=== PATIENT | male | born 1940 | race Caucasian/White ===

== ENCOUNTER 2017-07-28 08:43 | Day surgery (SDC) | payer MEDICARE, OTHER ==
[~2017-07-28] VITALS: Ht 177.8 cm; Wt 90.5 kg
[2017-07-28] MEDS ORDERED: METF500T4 PO (09:20)
[2017-07-28] MEDS ORDERED: CHOL200074 PO (09:20)
[2017-07-28] MEDS ORDERED: testosterone IM (09:20)
[2017-07-28] MEDS ORDERED: SIMV40TA3 PO (09:26)
[2017-07-28] MEDS ORDERED: LOSA1TAB17 PO (09:26)
[2017-07-28] MEDS ORDERED: SILD100T PO (09:26)
[2017-07-28] MEDS ORDERED: FLUT1DIS3 INH (09:26)
[2017-07-28] MEDS ORDERED: DIPH25CA61 PO (09:26)
[2017-07-28] MEDS ORDERED: ASPI-621 PO (09:26)
[2017-07-28] MEDS ORDERED: [UNRECOGNIZED DRUG - CODE] PO (09:26)
[2017-07-28 09:34] VITALS: BP 152/78
[2017-07-28] MEDS ORDERED: SODIUM CHLORIDE 0.9% 1,000 ML IV SCH (11:07)
[2017-07-28] MEDS ORDERED: FENTANYL PF 100 MCG/2ML ONE (11:17)
[2017-07-28] MEDS ORDERED: VERAPAMIL 2.5 MG/ML, 2ML ONE (11:17)
[2017-07-28] MEDS ORDERED: TICAGRELOR 90 MG TABLET ONE (11:17)
[2017-07-28] MEDS ORDERED: LIDOCAINE 2%, 20ML ONE (11:17)
[2017-07-28] MEDS ORDERED: BIVALIRUDIN 250 MG ONE (11:17)
[2017-07-28] MEDS ORDERED: HEPARIN 1,000 UNITS/ML, 10ML ONE (11:17)
[2017-07-28] MEDS ORDERED: MIDAZOLAM 1 MG/ML, 5ML ONE (11:17)
== END 2017-07-28 14:46 ==
LOC: CACL 08:43
PROVIDERS: ATTEND Internal Medicine Cardiovascular Disease
DX: I25.10 Atherosclerotic heart disease of native coronary artery without angina pectoris (principal); I35.0 Nonrheumatic aortic (valve) stenosis; I71.4 Abdominal aortic aneurysm, without rupture; I10 Essential (primary) hypertension; J44.9 Chronic obstructive pulmonary disease, unspecified; E11.9 Type 2 diabetes mellitus without complications
CPT/HCPCS: 93458; 99156; C1769; C1894; J1644; J2250; J3010; J3490; Q9967; J0583

== ENCOUNTER 2017-11-10 06:26 | Day surgery (SDC) | payer MEDICARE, OTHER ==
[~2017-11-10] VITALS: Ht 177.8 cm; Wt 89.5 kg
[~2017-11-10 06:26] MED LIST: ASPI-621 PO; CHOL200074 PO; DIPH25CA61 PO; FLUT1DIS3 INH; LOSA1TAB22 PO; METF500T4 PO; SILD100T PO; SIMV40TA3 PO; [UNRECOGNIZED DRUG - CODE] PO; testosterone IM
[2017-11-10] MEDS ORDERED: SODIUM CHLORIDE 0.9% 1,000 ML IV SCH (06:32)
[2017-11-10 06:39] VITALS: BP 122/84
[2017-11-10] MEDS ORDERED: WARF5TAB PO (06:58)
[2017-11-10] MEDS ORDERED: WARF2.5T PO (06:58)
[2017-11-10] MEDS ORDERED: LOSA25TA5 PO (06:58)
[2017-11-10] MEDS ORDERED: AMIO200T42 PO (07:01)
[2017-11-10] MEDS ORDERED: FURO20TA3 PO (07:01)
[2017-11-10] MEDS ORDERED: METO-93 PO (07:03)
[2017-11-10 07:17] LABS: INTERNATIONAL NORMALIZED RATIO 1.96 (0.93-1.1); PROTHROMBIN TIME 20.1 Seconds (9.6-11.5)
[2017-11-10 07:21] LABS: ALANINE AMINOTRANSFERASE 37 U/L (12-78); ALBUMIN 3.5 g/dL (3.4-5.0); ANION GAP 9 mmol/L (5-15); CALCIUM 8.8 mg/dL (8.5-10.1); CHLORIDE 104 mmol/L (98-107); CREATININE 1.96 mg/dL (0.7-1.3)
[2017-11-10 07:22] LABS: BASOPHILS # (AUTO) 0.08 x10^3/uL (0-0.1); BASOPHILS % (AUTO) 1 % (0-1); EOSINOPHILS % (AUTO) 5 % (1-7); LYMPHOCYTES # (AUTO) 1.18 x10^3/uL (1-3.4); LYMPHOCYTES % (AUTO) 15 % (22-44); MD NO; MEAN CORPUSCULAR HEMOGLOBIN 29.8 pg (27.5-34.5); MEAN CORPUSCULAR HGB CONC 32.9 g/dL (33.2-36.2); MEAN CORPUSCULAR VOLUME 90.5 fL (81-97); MEAN PLATELET VOLUME 8.1 fL (7.4-10.4); MONOCYTES # (AUTO) 0.58 x10^3/uL (0.2-0.8); MONOCYTES % (AUTO) 8 % (2-9); NEUTROPHILS # (AUTO) 5.48 x10^3/uL (1.8-6.8); NEUTROPHILS % (AUTO) 71 % (42-75); PLATELET COUNT 207 x10^3/uL (130-400); RED BLOOD COUNT 4.09 x10^6/uL (4.38-5.82); RED CELL DISTRIBUTION WIDTH 15.6 % (9.4-14.8)
[2017-11-10 07:23] LABS: ALKALINE PHOSPHATASE 80 U/L (45-117); BILIRUBIN,TOTAL 0.3 mg/dL (0.2-1.0)
[2017-11-10] MEDS ORDERED: PROTAMINE SULFATE 10 MG/ML, 5ML ONE (07:44)
[2017-11-10] MEDS ORDERED: HEPARIN 1,000 UNITS/ML, 10ML ONE (07:44)
[2017-11-10] MEDS ORDERED: ISOPROTERENOL 0.2MG/ML, 5ML ONE (07:44)
[2017-11-10] MEDS ORDERED: ADENOSINE 6 MG/2 ML ONE (07:44)
[2017-11-10] MEDS ORDERED: FENTANYL PF 250 MCG/5ML ONE (07:51)
[2017-11-10] MEDS ORDERED: MIDAZOLAM 1 MG/ML, 2ML ONE (07:51)
[2017-11-10] MEDS ORDERED: ROCURONIUM 10 MG/ML,10ML ONE (07:56)
[2017-11-10] MEDS ORDERED: ONDANSETRON 2MG/ML, 2ML ONE (07:56)
[2017-11-10] MEDS ORDERED: DEXAMETHASONE 4 MG/ML, 1ML ONE (07:56)
[2017-11-10] MEDS ORDERED: PROPOFOL 10 MG/ML, 20ML ONE (07:56)
[2017-11-10] MEDS ORDERED: PHENYLEPHRINE 10 MG/ML ONE (07:56)
[2017-11-10] MEDS ORDERED: SUCCINYLCHOLINE 20 MG/ML, 10ML ONE (07:56)
[2017-11-10] MEDS ORDERED: LIDOCAINE 2%, 20ML ONE (08:02)
[2017-11-10] MEDS ORDERED: TEMPLATE NON-FORMULARY MED. (Cholecalciferol (Vitamin D3)** (Vitamin D3**) 2,000 UNIT) PO SCH (09:00)
[2017-11-10] MEDS ORDERED: metFORMIN 500 MG TABLET PO SCH (09:00)
[2017-11-10] MEDS ORDERED: WARFARIN 5 MG TABLET PO-COUM SCH (09:00)
[2017-11-10] MEDS ORDERED: METOPROLOL SUCCINATE 50 MG TAB.ER.24H PO SCH (09:00)
[2017-11-10] MEDS ORDERED: WARFARIN 2.5 MG TABLET PO-COUM SCH (09:00)
[2017-11-10] MEDS ORDERED: MULTIVIT MIN PO SCH (09:00)
[2017-11-10] MEDS ORDERED: ACETAMINOPHEN 325 MG TABLET PO PRN ×2 (09:00→09:30)
[2017-11-10] MEDS ORDERED: AMIODARONE 200 MG TABLET PO SCH (09:00)
[2017-11-10] MEDS ORDERED: TEMPLATE NON-FORMULARY MED. (Sildenafil Citrate** (Viagra**) 100 MG) PO SCH (09:00)
[2017-11-10] MEDS ORDERED: LYCOPEN PO SCH (09:00)
[2017-11-10] MEDS ORDERED: [UNRECOGNIZED DRUG - OTHER] PO SCH (09:00)
[2017-11-10] MEDS ORDERED: FUROSEMIDE 20 MG TABLET PO SCH (09:00)
[2017-11-10] MEDS ORDERED: DIPHENHYDRAMINE 25 MG CAPSULE PO PRN (09:00)
[2017-11-10] MEDS ORDERED: LUTEIN PO SCH (09:00)
[2017-11-10] MEDS ORDERED: LOSARTAN 25MG TABLET PO SCH (09:00)
[2017-11-10] MEDS ORDERED: hydrALAzine 20 MG/ML, 1ML IV PRN (09:30)
[2017-11-10] MEDS ORDERED: HYDROmorphone 1 MG/ML, 1ML IV PRN (09:30)
[2017-11-10] MEDS ORDERED: OXYcodone 5 MG/5 ML ORAL.SOL UDC PO PRN (09:30)
[2017-11-10] MEDS ORDERED: LABETALOL 5MG/ML, 20ML IV PRN (09:30)
[2017-11-10] MEDS ORDERED: FENTANYL PF 100 MCG/2ML IV PRN (09:30)
[2017-11-10] MEDS ORDERED: MIDAZOLAM 1 MG/ML, 2ML IV PRN (09:30)
[2017-11-10] MEDS ORDERED: PROMETHAZINE 25 MG/ML, 1ML IV PRN (09:30)
[2017-11-10] MEDS ORDERED: MEPERIDINE/PF 25MG/0.5ML IVPush PRN (09:30)
[2017-11-10] MEDS ORDERED: ALBUTEROL SULFATE 2.5 MG/3 ML NPPB PRN (09:30)
[2017-11-10] MEDS ORDERED: ONDANSETRON 2MG/ML, 2ML IVPush PRN (09:30)
[2017-11-10] MEDS ORDERED: SIMVASTATIN 40 MG TABLET PO SCH (21:00)
== END 2017-11-10 14:00 ==
LOC: CACL 06:26
PROVIDERS: ATTEND Internal Medicine Cardiovascular Disease
DX: I48.92 Unspecified atrial flutter (principal); I35.1 Nonrheumatic aortic (valve) insufficiency; I10 Essential (primary) hypertension; Z88.5 Allergy status to narcotic agent
CPT/HCPCS: 36415; 71046; 80053; 82962; 85025; 85610; 85730; 93613; 93621; 93653; C1730; C1731; C1732; C1894; J0330; J1100; J2250; J2370; J2405; J2704; J3010; J3490; J0153; J1644; J2720